=== PATIENT | male | born 1945 | race Caucasian/White ===

== ENCOUNTER 2018-08-28 07:53 | Inpatient (IN) ==
[2018-08-28] MEDS ORDERED: methylPREDNISolone SOD SUC 125 MG/2 ML VIAL IV STA (08:12)
[2018-08-28] MEDS ORDERED: ALBUTEROL 2.5 MG/3 ML NEB RESP TX STA (08:12)
[2018-08-28 08:25] LABS: Basophils # 0.1 10*3/uL (0.0-0.2); Basophils % 0.7 % (0.0-0.8); Eosinophils # 0.1 10*3/uL (0.0-0.87); Eosinophils % 1.1 % (0.00-10.9); Hematocrit 54.6 VOL% (42.0-52.0); Hemoglobin 17.8 GM/DL (14.0-18.0); Immature Granulocytes % 0.3 %; Immature Granulocytes Absolute 0.03 #; Lymphocytes # 0.6 10*3/uL (1.4-4.0); Lymphocytes % 7.1 % (21.2-54.2); Mean Corpuscular HGB Conc 32.6 GM/DL (32-36); Mean Corpuscular Hemoglobin 30 PG (27-34); Mean Corpuscular Volume 90.7 FL (87-102); Monocytes # 0.9 10*3/uL (0.11-0.8); Monocytes % 10.1 % (1.7-12.7); Neutrophils # 7.2 10*3/uL (1.4-7.4); Neutrophils % 80.7 % (38.7-73.9); Platelet Count 212 T/CUMM (130-400); Red Blood Count 6.02 MC/CUMM (3.8-5.5); Red Cell Distribution Width 14.4 % (9.3-17.3); White Blood Count 8.9 T/CUMM (4-12)
[2018-08-28 08:47] LABS: Bilirubin,Total 1.1 MG/DL (0.2-1.0); Calcium 9.1 MG/DL (8.5-10.1); Potassium 4.1 MMOL/L (3.5-5.1); Total Protein 7.2 G/DL (6.4-8.3)
[2018-08-28 08:49] LABS: ABG Base Excess 5.5 MMOL/L (-2.5-2.5); ABG HCO3 28.8 MMOL/L (20-26); ABG Oxygen Saturation 78.5 % (95-100); ABG PCO2 45.3 MM HG (35-48); ABG TCO2 25.3 MMOL/L (23-27)
[2018-08-28] MEDS ORDERED: LEVOFLOXACIN INJ 500 MG in PREMIX 1 EACH IV STA (10:04)
[2018-08-28] MEDS ORDERED: PROMETHAZINE 25 MG/1 ML VIAL IM PRN (10:56)
[2018-08-28] MEDS ORDERED: ONDANSETRON 4 MG/2 ML VIAL IV PRN (10:56)
[2018-08-28 12:07] LABS: Apearance,Urine Slightly Hazy (Clear); Bilirubin,Urine Negative (Negative); Blood, Urine Negative (Negative); Glucose,Urine (UA) Negative (Negative); Hyaline Casts,Urine 11 /LPF (0-3); Ketones,Urine 5 mg/dL (Negative); Mucus,Urine Many /LPF (Occasional); Nitrite,Urine Negative (Negative); Protein,Urine 30 MG/DL; RBC,Urine 1 /HPF (0-4); Squamous Epithelial Cell,Urine Occasional /HPF (0-10); Urine Color Amber (Yellow); Urine Specific Gravity 1.021 (1.001-1.035); WBC,Urine 1 /HPF (0-6)
[2018-08-28] MEDS ORDERED: ACETAMINOPHEN 325 MG TABLET PO PRN (13:10)
[2018-08-28] MEDS: LEVOFLOXACIN INJ 500 MG in PREMIX 1 EACH IV SCH (14:05)
[2018-08-28] MEDS: methylPREDNISolone SOD SUC 125 MG/2 ML VIAL IV SCH ×3 (14:06→23:35)
[2018-08-28] MEDS: MONTELUKAST 10 MG TABLET PO SCH (14:40)
[2018-08-28] MEDS: cefTRIAXone 1,000 MG in SYRINGE 1 EACH IV SCH (14:40)
[2018-08-28] MEDS: GABAPENTIN 600 MG TABLET PO SCH ×2 (14:40→21:18)
[2018-08-28] MEDS: ENOXAPARIN 40 MG/0.4 ML SYRINGE SUBCUT SCH (14:41)
[2018-08-28] MEDS ORDERED: ALBUTEROL/IPRATROPIUM 3 ML NEB RESP TX SCH (15:00)
[2018-08-28] MEDS: ALBUTEROL/IPRATROPIUM 3 ML NEB RESP TX SCH ×2 (15:28→18:58)
[2018-08-28] MEDS: DORNASE ALFA 2.5 MG/2.5 ML VIAL RESP TX SCH (18:58)
[2018-08-28] MEDS: FAMOTIDINE 20 MG TABLET PO SCH (21:19)
[2018-08-29] MEDS: ALBUTEROL/IPRATROPIUM 3 ML NEB RESP TX SCH ×4 (00:49→20:16)
[2018-08-29 04:20] LABS: Hematocrit 50.6 VOL% (42.0-52.0); Hemoglobin 16.6 GM/DL (14.0-18.0); Immature Granulocytes Absolute 0.04 #; Lymphocytes # 0.3 10*3/uL (1.4-4.0); Lymphocytes % 6.6 % (21.2-54.2); Mean Corpuscular HGB Conc 32.8 GM/DL (32-36); Mean Corpuscular Hemoglobin 29 PG (27-34); Mean Corpuscular Volume 89.2 FL (87-102); Monocytes # 0.2 10*3/uL (0.11-0.8); Monocytes % 4.4 % (1.7-12.7); Neutrophils # 3.6 10*3/uL (1.4-7.4); Platelet Count 198 T/CUMM (130-400); Red Blood Count 5.67 MC/CUMM (3.8-5.5); Red Cell Distribution Width 13.8 % (9.3-17.3); White Blood Count 4.1 T/CUMM (4-12)
[2018-08-29 05:04] LABS: Albumin 3.4 G/DL (3.4-5.0); Bilirubin,Total 0.8 MG/DL (0.2-1.0); Calcium 8.7 MG/DL (8.5-10.1); Osmolality,Calculated 277.8 MOS/KG (273-304); Potassium 3.9 MMOL/L (3.5-5.1); Risk Ratio 2.27; Thyroid Stimulating Hormone 0.237 uIU/ml (0.358-3.74); VLDL CHOLESTEROL 17.6 MG/DL
[2018-08-29] MEDS: methylPREDNISolone SOD SUC 125 MG/2 ML VIAL IV SCH ×3 (06:20→15:32)
[2018-08-29] MEDS: DORNASE ALFA 2.5 MG/2.5 ML VIAL RESP TX SCH ×2 (07:40→20:16)
[2018-08-29] MEDS ORDERED: methylPREDNISolone SOD SUC 40 MG/1 ML VIAL ONE (09:19)
[2018-08-29] MEDS: POTASSIUM CHLORIDE 20 MEQ TABLET PO SCH (09:30)
[2018-08-29] MEDS: SIMVASTATIN 40 MG TABLET PO SCH (09:30)
[2018-08-29] MEDS: MONTELUKAST 10 MG TABLET PO SCH (09:30)
[2018-08-29] MEDS: PANTOPRAZOLE 40 MG TABLET PO SCH (09:30)
[2018-08-29] MEDS: FUROSEMIDE 40 MG TABLET PO SCH (09:31)
[2018-08-29] MEDS: FAMOTIDINE 20 MG TABLET PO SCH ×2 (09:31→20:44)
[2018-08-29] MEDS: GABAPENTIN 600 MG TABLET PO SCH ×3 (09:31→20:44)
[2018-08-29] MEDS: THEOPHYLLINE ER (24 HR) 400 MG TABLET PO SCH (09:32)
[2018-08-29] MEDS: ENOXAPARIN 40 MG/0.4 ML SYRINGE SUBCUT SCH (11:13)
[2018-08-29] MEDS: LEVOFLOXACIN INJ 500 MG in PREMIX 1 EACH IV SCH (11:55)
[2018-08-29] MEDS: MAGNESIUM HYDROXIDE SUSP 30 ML UDCUP PO PRN (15:32)
[2018-08-29] MEDS: cefTRIAXone 1,000 MG in SYRINGE 1 EACH IV SCH (15:32)
[2018-08-30] MEDS: methylPREDNISolone SOD SUC 125 MG/2 ML VIAL IV SCH ×2 (00:32→12:28)
[2018-08-30] MEDS: ALBUTEROL/IPRATROPIUM 3 ML NEB RESP TX SCH ×4 (01:23→20:42)
[2018-08-30 04:45] LABS: Basophils % 0.1 % (0.0-0.8); Hematocrit 50.1 VOL% (42.0-52.0); Hemoglobin 16.1 GM/DL (14.0-18.0); Immature Granulocytes % 0.4 %; Immature Granulocytes Absolute 0.04 #; Lymphocytes # 0.2 10*3/uL (1.4-4.0); Lymphocytes % 2.1 % (21.2-54.2); Mean Corpuscular HGB Conc 32.1 GM/DL (32-36); Mean Corpuscular Hemoglobin 29 PG (27-34); Mean Corpuscular Volume 90.6 FL (87-102); Mean Platelet Volume 9.9 FL (9.6-12.0); Monocytes # 0.7 10*3/uL (0.11-0.8); Monocytes % 7.5 % (1.7-12.7); Neutrophils # 8.4 10*3/uL (1.4-7.4); Neutrophils % 89.9 % (38.7-73.9); Platelet Count 191 T/CUMM (130-400); Red Blood Count 5.53 MC/CUMM (3.8-5.5); Red Cell Distribution Width 13.7 % (9.3-17.3); White Blood Count 9.3 T/CUMM (4-12)
[2018-08-30 05:11] LABS: Calcium 8.4 MG/DL (8.5-10.1); Osmolality,Calculated 284.3 MOS/KG (273-304); Potassium 3.5 MMOL/L (3.5-5.1)
[2018-08-30 05:20] LABS: Lymphocytes 2 % (20-55); Platelet Estimate Adequate; Segmented Neutrophils 92 % (50-85); Total Cells Counted 100
[2018-08-30 05:21] LABS: Hypochromasia Slight; Ovalocytes Slight
[2018-08-30] MEDS: DORNASE ALFA 2.5 MG/2.5 ML VIAL RESP TX SCH ×2 (07:05→20:42)
[2018-08-30] MEDS: methylPREDNISolone SOD SUC 40 MG/1 ML VIAL IV SCH ×2 (08:54→23:43)
[2018-08-30] MEDS: FUROSEMIDE 40 MG TABLET PO SCH (08:55)
[2018-08-30] MEDS: THEOPHYLLINE ER (24 HR) 400 MG TABLET PO SCH (08:55)
[2018-08-30] MEDS: PANTOPRAZOLE 40 MG TABLET PO SCH (08:55)
[2018-08-30] MEDS: MONTELUKAST 10 MG TABLET PO SCH (08:55)
[2018-08-30] MEDS: FAMOTIDINE 20 MG TABLET PO SCH ×2 (08:55→20:55)
[2018-08-30] MEDS: SIMVASTATIN 40 MG TABLET PO SCH (08:55)
[2018-08-30] MEDS: GABAPENTIN 600 MG TABLET PO SCH ×3 (08:56→20:54)
[2018-08-30] MEDS: POTASSIUM CHLORIDE 20 MEQ TABLET PO SCH (08:56)
[2018-08-30] MEDS: ENOXAPARIN 40 MG/0.4 ML SYRINGE SUBCUT SCH (11:46)
[2018-08-30] MEDS: LEVOFLOXACIN INJ 500 MG in PREMIX 1 EACH IV SCH (11:47)
[2018-08-30] MEDS: cefTRIAXone 1,000 MG in SYRINGE 1 EACH IV SCH (14:15)
[2018-08-31] MEDS: ALBUTEROL/IPRATROPIUM 3 ML NEB RESP TX SCH ×4 (00:15→19:57)
[2018-08-31] MEDS: DORNASE ALFA 2.5 MG/2.5 ML VIAL RESP TX SCH ×2 (07:33→20:09)
[2018-08-31] MEDS: MONTELUKAST 10 MG TABLET PO SCH (08:25)
[2018-08-31] MEDS: FAMOTIDINE 20 MG TABLET PO SCH ×2 (08:25→20:48)
[2018-08-31] MEDS: SIMVASTATIN 40 MG TABLET PO SCH (08:25)
[2018-08-31] MEDS: GABAPENTIN 600 MG TABLET PO SCH ×3 (08:25→20:48)
[2018-08-31] MEDS: THEOPHYLLINE ER (24 HR) 400 MG TABLET PO SCH (08:25)
[2018-08-31] MEDS: POTASSIUM CHLORIDE 20 MEQ TABLET PO SCH (08:26)
[2018-08-31] MEDS: FUROSEMIDE 40 MG TABLET PO SCH (08:26)
[2018-08-31] MEDS: PANTOPRAZOLE 40 MG TABLET PO SCH (08:26)
[2018-08-31] MEDS: methylPREDNISolone SOD SUC 40 MG/1 ML VIAL IV SCH ×2 (08:27→20:49)
[2018-08-31] MEDS: LEVOFLOXACIN INJ 500 MG in PREMIX 1 EACH IV SCH (10:29)
[2018-08-31] MEDS: ENOXAPARIN 40 MG/0.4 ML SYRINGE SUBCUT SCH (10:30)
[2018-08-31] MEDS: cefTRIAXone 1,000 MG in SYRINGE 1 EACH IV SCH (14:38)
[2018-09-01] MEDS: ALBUTEROL/IPRATROPIUM 3 ML NEB RESP TX SCH ×4 (00:11→19:19)
[2018-09-01] MEDS: DORNASE ALFA 2.5 MG/2.5 ML VIAL RESP TX SCH ×2 (08:05→19:31)
[2018-09-01] MEDS: PANTOPRAZOLE 40 MG TABLET PO SCH (08:45)
[2018-09-01] MEDS: FAMOTIDINE 20 MG TABLET PO SCH ×2 (08:45→21:08)
[2018-09-01] MEDS: THEOPHYLLINE ER (24 HR) 400 MG TABLET PO SCH (08:45)
[2018-09-01] MEDS: SIMVASTATIN 40 MG TABLET PO SCH (08:45)
[2018-09-01] MEDS: MONTELUKAST 10 MG TABLET PO SCH (08:46)
[2018-09-01] MEDS: FUROSEMIDE 40 MG TABLET PO SCH (08:46)
[2018-09-01] MEDS: POTASSIUM CHLORIDE 20 MEQ TABLET PO SCH (08:48)
[2018-09-01] MEDS: GABAPENTIN 600 MG TABLET PO SCH ×3 (08:48→21:08)
[2018-09-01] MEDS: methylPREDNISolone SOD SUC 40 MG/1 ML VIAL IV SCH ×2 (08:49→21:09)
[2018-09-01] MEDS: ENOXAPARIN 40 MG/0.4 ML SYRINGE SUBCUT SCH (11:57)
[2018-09-01] MEDS: LEVOFLOXACIN INJ 500 MG in PREMIX 1 EACH IV SCH (12:00)
[2018-09-01] MEDS: cefTRIAXone 1,000 MG in SYRINGE 1 EACH IV SCH (15:12)
[2018-09-02] MEDS: ALBUTEROL/IPRATROPIUM 3 ML NEB RESP TX SCH ×4 (00:23→18:59)
[2018-09-02] MEDS: DORNASE ALFA 2.5 MG/2.5 ML VIAL RESP TX SCH ×2 (06:52→18:59)
[2018-09-02] MEDS: methylPREDNISolone SOD SUC 40 MG/1 ML VIAL IV SCH ×2 (09:03→09:51)
[2018-09-02] MEDS: FUROSEMIDE 40 MG TABLET PO SCH (09:46)
[2018-09-02] MEDS: FAMOTIDINE 20 MG TABLET PO SCH ×2 (09:46→20:26)
[2018-09-02] MEDS: PANTOPRAZOLE 40 MG TABLET PO SCH (09:46)
[2018-09-02] MEDS: MONTELUKAST 10 MG TABLET PO SCH (09:47)
[2018-09-02] MEDS: SIMVASTATIN 40 MG TABLET PO SCH (09:47)
[2018-09-02] MEDS: GABAPENTIN 600 MG TABLET PO SCH ×3 (09:48→20:26)
[2018-09-02] MEDS: THEOPHYLLINE ER (24 HR) 400 MG TABLET PO SCH (09:49)
[2018-09-02] MEDS: POTASSIUM CHLORIDE 20 MEQ TABLET PO SCH (09:49)
[2018-09-02] MEDS: MAGNESIUM HYDROXIDE SUSP 30 ML UDCUP PO PRN (09:50)
[2018-09-02] MEDS: ENOXAPARIN 40 MG/0.4 ML SYRINGE SUBCUT SCH (11:38)
[2018-09-02] MEDS: LEVOFLOXACIN INJ 500 MG in PREMIX 1 EACH IV SCH (12:38)
[2018-09-02] MEDS ORDERED: MAGNESIUM HYDROXIDE SUSP 30 ML UDCUP PO ONE (14:51)
[2018-09-02] MEDS: cefTRIAXone 1,000 MG in SYRINGE 1 EACH IV SCH (16:08)
[2018-09-03] MEDS: ALBUTEROL/IPRATROPIUM 3 ML NEB RESP TX SCH ×4 (00:45→18:53)
[2018-09-03] MEDS: GABAPENTIN 600 MG TABLET PO SCH ×3 (08:39→20:55)
[2018-09-03] MEDS: PANTOPRAZOLE 40 MG TABLET PO SCH (08:39)
[2018-09-03] MEDS: POTASSIUM CHLORIDE 20 MEQ TABLET PO SCH (08:39)
[2018-09-03] MEDS: THEOPHYLLINE ER (24 HR) 400 MG TABLET PO SCH (08:39)
[2018-09-03] MEDS: MONTELUKAST 10 MG TABLET PO SCH (08:39)
[2018-09-03] MEDS: FAMOTIDINE 20 MG TABLET PO SCH ×2 (08:39→20:55)
[2018-09-03] MEDS: FUROSEMIDE 40 MG TABLET PO SCH (08:39)
[2018-09-03] MEDS: SIMVASTATIN 40 MG TABLET PO SCH (08:40)
[2018-09-03] MEDS: methylPREDNISolone SOD SUC 40 MG/1 ML VIAL IV SCH (08:40)
[2018-09-03] MEDS ORDERED: MAGNESIUM HYDROXIDE SUSP 30 ML UDCUP PO PRN (09:00)
[2018-09-03] MEDS: LEVOFLOXACIN INJ 500 MG in PREMIX 1 EACH IV SCH (11:10)
[2018-09-03] MEDS: ENOXAPARIN 40 MG/0.4 ML SYRINGE SUBCUT SCH (11:10)
[2018-09-03] MEDS: cefTRIAXone 1,000 MG in SYRINGE 1 EACH IV SCH (15:28)
[2018-09-04] MEDS: ALBUTEROL/IPRATROPIUM 3 ML NEB RESP TX SCH ×2 (00:04→07:24)
[2018-09-04 08:11] VITALS: BP 134/83
[2018-09-04] MEDS: GABAPENTIN 600 MG TABLET PO SCH (09:53)
[2018-09-04] MEDS: SIMVASTATIN 40 MG TABLET PO SCH (09:53)
[2018-09-04] MEDS: THEOPHYLLINE ER (24 HR) 400 MG TABLET PO SCH (09:53)
[2018-09-04] MEDS: MONTELUKAST 10 MG TABLET PO SCH (09:54)
[2018-09-04] MEDS: methylPREDNISolone SOD SUC 40 MG/1 ML VIAL IV SCH (09:54)
[2018-09-04] MEDS: POTASSIUM CHLORIDE 20 MEQ TABLET PO SCH (09:54)
[2018-09-04] MEDS: FUROSEMIDE 40 MG TABLET PO SCH (09:54)
[2018-09-04] MEDS: FAMOTIDINE 20 MG TABLET PO SCH (09:54)
[2018-09-04] MEDS: PANTOPRAZOLE 40 MG TABLET PO SCH (09:54)
== END 2018-09-04 11:31 | disposition home or self-care (01) | DRG 189 ==
LOC: N.ED 07:53 → SUATTDRO 10:41 → N.EDINP 10:41 → N.ICU 11:26 → N.4E 08-29 12:06
PROVIDERS: ADMIT Internal Medicine Cardiovascular Disease; ATTEND Internal Medicine

== ENCOUNTER 2018-10-14 19:36 | Inpatient (IN) ==
[2018-10-14] MEDS ORDERED: ALBUTEROL/IPRATROPIUM 3 ML NEB RESP TX STA (20:39)
[2018-10-14] MEDS ORDERED: VANCOMYCIN INJ 1,750 MG in SODIUM CHLORIDE 0.9% 250 ML IV STA (20:39)
[2018-10-14] MEDS ORDERED: CEFEPIME 2,000 MG in SODIUM CHLORIDE 0.9% 100 ML IV STA (20:39)
[2018-10-14] MEDS ORDERED: methylPREDNISolone SOD SUC 125 MG/2 ML VIAL IV STA (20:40)
[2018-10-14] MEDS ORDERED: CEFEPIME 2,000 MG VIAL ONE (20:59)
[2018-10-14 21:07] LABS: Basophils % 0.4 % (0.0-0.8); Eosinophils # 0.1 10*3/uL (0.0-0.87); Hematocrit 46.2 VOL% (42.0-52.0); Hemoglobin 15.2 GM/DL (14.0-18.0); Immature Granulocytes % 0.7 %; Immature Granulocytes Absolute 0.06 #; Lymphocytes # 0.6 10*3/uL (1.4-4.0); Lymphocytes % 6.1 % (21.2-54.2); Mean Corpuscular HGB Conc 32.9 GM/DL (32-36); Mean Corpuscular Hemoglobin 30 PG (27-34); Mean Corpuscular Volume 90.2 FL (87-102); Mean Platelet Volume 9.5 FL (9.6-12.0); Monocytes % 11.1 % (1.7-12.7); Neutrophils # 7.5 10*3/uL (1.4-7.4); Neutrophils % 80.7 % (38.7-73.9); Platelet Count 185 T/CUMM (130-400); Red Blood Count 5.12 MC/CUMM (3.8-5.5); Red Cell Distribution Width 14.5 % (9.3-17.3); White Blood Count 9.2 T/CUMM (4-12)
[2018-10-14 21:23] LABS: ABG HCO3 27.8 MMOL/L (20-26); ABG Oxygen Saturation 94.2 % (95-100); ABG PCO2 41.5 MM HG (35-48); ABG PH 7.444 (7.35-7.45); ABG PO2 69.4 MM HG (80-95); ABG TCO2 23.9 MMOL/L (23-27); Allen Test Positive
[2018-10-14 21:28] LABS: Apearance,Urine CLEAR (Clear); Bilirubin,Urine Negative (Negative); Blood, Urine Negative (Negative); Glucose,Urine (UA) Negative (Negative); Hyaline Casts,Urine 3 /LPF (0-3); Ketones,Urine Negative (Negative); Mucus,Urine Occasional /LPF (Occasional); Nitrite,Urine Negative (Negative); Protein,Urine Negative; RBC,Urine <1 /HPF (0-4); Urine Color Yellow (Yellow); Urine Specific Gravity 1.011 (1.001-1.035); WBC,Urine <1 /HPF (0-6)
[2018-10-14 21:35] LABS: Albumin 3.1 G/DL (3.4-5.0); Bilirubin,Total 1.3 MG/DL (0.2-1.0); Calcium 8.4 MG/DL (8.5-10.1); Osmolality,Calculated 268.2 MOS/KG (273-304); Potassium 3.5 MMOL/L (3.5-5.1); Total Protein 6.6 G/DL (6.4-8.3)
[2018-10-14] MEDS ORDERED: ONDANSETRON 4 MG/2 ML VIAL IV PRN (23:22)
[2018-10-14] MEDS ORDERED: ACETAMINOPHEN 325 MG TABLET PO PRN ×2 (23:22→23:37)
[2018-10-14] MEDS ORDERED: guaiFENesin/CODEINE 5 ML LIQUID PO PRN (23:32)
[2018-10-15] MEDS: LEVOFLOXACIN INJ 750 MG in PREMIX 1 EACH IV SCH (00:51)
[2018-10-15] MEDS: ALBUTEROL/IPRATROPIUM 3 ML NEB RESP TX SCH ×4 (01:21→19:32)
[2018-10-15] MEDS: PIPERACILLIN/TAZOBACTAM 3,375 MG in SODIUM CHLORIDE 0.9% 100 ML IV SCH ×3 (03:05→21:29)
[2018-10-15] MEDS: methylPREDNISolone SOD SUC 40 MG/1 ML VIAL IV SCH ×4 (03:05→21:30)
[2018-10-15 06:23] LABS: Basophils % 0.2 % (0.0-0.8); Hematocrit 46.7 VOL% (42.0-52.0); Hemoglobin 15.6 GM/DL (14.0-18.0); Immature Granulocytes % 1.2 %; Immature Granulocytes Absolute 0.07 #; Lymphocytes # 0.3 10*3/uL (1.4-4.0); Mean Corpuscular HGB Conc 33.4 GM/DL (32-36); Mean Corpuscular Hemoglobin 30 PG (27-34); Mean Corpuscular Volume 89.3 FL (87-102); Mean Platelet Volume 9.8 FL (9.6-12.0); Monocytes # 0.1 10*3/uL (0.11-0.8); Neutrophils # 5.6 10*3/uL (1.4-7.4); Neutrophils % 92.6 % (38.7-73.9); Platelet Count 182 T/CUMM (130-400); Red Blood Count 5.23 MC/CUMM (3.8-5.5); Red Cell Distribution Width 14.3 % (9.3-17.3)
[2018-10-15 06:51] LABS: Hypochromasia 1+; Platelet Estimate Adequate
[2018-10-15 07:02] LABS: Albumin 3.1 G/DL (3.4-5.0); Bilirubin,Total 0.7 MG/DL (0.2-1.0); Calcium 8.7 MG/DL (8.5-10.1); Osmolality,Calculated 275.8 MOS/KG (273-304); Potassium 3.8 MMOL/L (3.5-5.1); Total Protein 7.1 G/DL (6.4-8.3)
[2018-10-15] MEDS: FUROSEMIDE 40 MG TABLET PO SCH (09:01)
[2018-10-15] MEDS: CITALOPRAM 20 MG TABLET PO SCH (09:01)
[2018-10-15] MEDS: FAMOTIDINE 20 MG TABLET PO SCH ×2 (09:01→21:30)
[2018-10-15] MEDS: SIMVASTATIN 40 MG TABLET PO SCH (09:01)
[2018-10-15] MEDS: PANTOPRAZOLE 40 MG TABLET PO SCH (09:01)
[2018-10-15] MEDS: GABAPENTIN 600 MG TABLET PO SCH ×3 (09:01→21:30)
[2018-10-15] MEDS: THEOPHYLLINE ER (24 HR) 400 MG TABLET PO SCH (09:01)
[2018-10-15] MEDS: POTASSIUM CHLORIDE 20 MEQ TABLET PO SCH (09:01)
[2018-10-15] MEDS: ENOXAPARIN 40 MG/0.4 ML SYRINGE SUBCUT SCH (09:02)
[2018-10-15] MEDS ORDERED: ALBUTEROL/IPRATROPIUM 3 ML NEB RESP TX PRN (11:22)
[2018-10-16] MEDS: LEVOFLOXACIN INJ 750 MG in PREMIX 1 EACH IV SCH (01:52)
[2018-10-16] MEDS: ALBUTEROL/IPRATROPIUM 3 ML NEB RESP TX SCH ×4 (02:03→20:06)
[2018-10-16] MEDS: methylPREDNISolone SOD SUC 40 MG/1 ML VIAL IV SCH ×4 (04:02→21:53)
[2018-10-16] MEDS: PIPERACILLIN/TAZOBACTAM 3,375 MG in SODIUM CHLORIDE 0.9% 100 ML IV SCH ×3 (04:03→21:53)
[2018-10-16 04:33] LABS: Basophils % 0.1 % (0.0-0.8); Hematocrit 44.4 VOL% (42.0-52.0); Hemoglobin 14.9 GM/DL (14.0-18.0); Immature Granulocytes % 0.6 %; Immature Granulocytes Absolute 0.07 #; Lymphocytes # 0.3 10*3/uL (1.4-4.0); Lymphocytes % 2.7 % (21.2-54.2); Mean Corpuscular HGB Conc 33.6 GM/DL (32-36); Mean Corpuscular Hemoglobin 30 PG (27-34); Mean Corpuscular Volume 89.5 FL (87-102); Mean Platelet Volume 9.9 FL (9.6-12.0); Monocytes # 0.6 10*3/uL (0.11-0.8); Monocytes % 5.3 % (1.7-12.7); Neutrophils # 10.6 10*3/uL (1.4-7.4); Neutrophils % 91.3 % (38.7-73.9); Platelet Count 205 T/CUMM (130-400); Red Blood Count 4.96 MC/CUMM (3.8-5.5); Red Cell Distribution Width 14.3 % (9.3-17.3); White Blood Count 11.6 T/CUMM (4-12)
[2018-10-16 04:55] LABS: Calcium 8.8 MG/DL (8.5-10.1); Osmolality,Calculated 280.5 MOS/KG (273-304); Potassium 3.6 MMOL/L (3.5-5.1)
[2018-10-16 05:03] LABS: Hypochromasia 1+; Lymphocytes 1 % (20-55); Platelet Estimate Adequate; Segmented Neutrophils 96 % (50-85); Total Cells Counted 100
[2018-10-16] MEDS: SIMVASTATIN 40 MG TABLET PO SCH (08:37)
[2018-10-16] MEDS: CITALOPRAM 20 MG TABLET PO SCH (08:37)
[2018-10-16] MEDS: GABAPENTIN 600 MG TABLET PO SCH ×3 (08:37→21:52)
[2018-10-16] MEDS: THEOPHYLLINE ER (24 HR) 400 MG TABLET PO SCH (08:37)
[2018-10-16] MEDS: FAMOTIDINE 20 MG TABLET PO SCH ×2 (08:37→21:52)
[2018-10-16] MEDS: FUROSEMIDE 40 MG TABLET PO SCH (08:38)
[2018-10-16] MEDS: PANTOPRAZOLE 40 MG TABLET PO SCH (08:38)
[2018-10-16] MEDS: POTASSIUM CHLORIDE 20 MEQ TABLET PO SCH (08:38)
[2018-10-16] MEDS: ENOXAPARIN 40 MG/0.4 ML SYRINGE SUBCUT SCH (08:38)
[2018-10-17] MEDS: ALBUTEROL/IPRATROPIUM 3 ML NEB RESP TX SCH ×2 (02:05→07:47)
[2018-10-17] MEDS: LEVOFLOXACIN INJ 750 MG in PREMIX 1 EACH IV SCH (03:24)
[2018-10-17] MEDS: methylPREDNISolone SOD SUC 40 MG/1 ML VIAL IV SCH ×2 (03:24→08:13)
[2018-10-17] MEDS: PIPERACILLIN/TAZOBACTAM 3,375 MG in SODIUM CHLORIDE 0.9% 100 ML IV SCH ×2 (04:57→12:13)
[2018-10-17 04:59] LABS: Basophils % 0.1 % (0.0-0.8); Hematocrit 45.8 VOL% (42.0-52.0); Hemoglobin 14.8 GM/DL (14.0-18.0); Immature Granulocytes % 1.1 %; Immature Granulocytes Absolute 0.16 #; Lymphocytes # 0.4 10*3/uL (1.4-4.0); Lymphocytes % 2.5 % (21.2-54.2); Mean Corpuscular HGB Conc 32.3 GM/DL (32-36); Mean Corpuscular Hemoglobin 29 PG (27-34); Mean Corpuscular Volume 90.7 FL (87-102); Mean Platelet Volume 10.1 FL (9.6-12.0); Monocytes # 0.4 10*3/uL (0.11-0.8); Monocytes % 2.8 % (1.7-12.7); Neutrophils # 13.5 10*3/uL (1.4-7.4); Neutrophils % 93.5 % (38.7-73.9); Platelet Count 227 T/CUMM (130-400); Red Blood Count 5.05 MC/CUMM (3.8-5.5); Red Cell Distribution Width 14.7 % (9.3-17.3); White Blood Count 14.5 T/CUMM (4-12)
[2018-10-17 05:13] LABS: Calcium 8.9 MG/DL (8.5-10.1); Osmolality,Calculated 279.5 MOS/KG (273-304); Potassium 3.7 MMOL/L (3.5-5.1)
[2018-10-17 07:02] LABS: Anisocytosis 1+; Lymphocytes 3 % (20-55); Platelet Estimate Adequate; Segmented Neutrophils 97 % (50-85); Total Cells Counted 100
[2018-10-17] MEDS: CITALOPRAM 20 MG TABLET PO SCH (08:13)
[2018-10-17] MEDS: FUROSEMIDE 40 MG TABLET PO SCH (08:13)
[2018-10-17] MEDS: PANTOPRAZOLE 40 MG TABLET PO SCH (08:13)
[2018-10-17] MEDS: FAMOTIDINE 20 MG TABLET PO SCH (08:13)
[2018-10-17] MEDS: SIMVASTATIN 40 MG TABLET PO SCH (08:13)
[2018-10-17] MEDS: ENOXAPARIN 40 MG/0.4 ML SYRINGE SUBCUT SCH (08:13)
[2018-10-17] MEDS: POTASSIUM CHLORIDE 20 MEQ TABLET PO SCH (08:13)
[2018-10-17] MEDS: THEOPHYLLINE ER (24 HR) 400 MG TABLET PO SCH (08:13)
[2018-10-17] MEDS: GABAPENTIN 600 MG TABLET PO SCH (08:13)
[2018-10-17 12:24] VITALS: BP 130/66
== END 2018-10-17 13:07 | disposition home health service (06) | DRG 189 ==
LOC: N.ED 19:36 → N.EDINP 23:22 → N.5E 10-15 00:16
PROVIDERS: ADMIT Internal Medicine; ATTEND Internal Medicine